=== PATIENT | male | born 1960 | race Caucasian/White ===

== ENCOUNTER 2018-04-20 16:17 | Outpatient (REF) | payer OTHER, SELFPAY ==
[2018-04-20 22:34] LABS: Abs Immature Grans 0.01 k/cumm (0.0-0.09); Absolute Basophil Count 0.05 k/cumm (0.0-0.2); Absolute Eosinophil Count 0.09 k/cumm (0.0-0.7); Absolute Lymphocyte Count 1.39 k/cumm (1.2-3.4); Absolute Monocyte Count 0.31 k/cumm (0.11-0.7); Absolute Neutrophil Count 3.49 k/cumm (1.2-6.7); Basophils % 0.9; Eosinophils % 1.7; HCT 46.6 % (40.0-50.0); HGB 15.6 g/dL (13.5-17.5); Immature Grans % 0.2; Mean Corp. HGB Concentration 33.5 g/dL (32.0-36.0); Mean Corpuscular Volume 101.5 fL (80-95); Mean Platelet Volume 9.5 fL (8.0-11.0); Monocytes % 5.8; Neutrophils % 65.4; Platelet Count 234 x1000/uL (130-400); RBC 4.59 m/cumm (4.50-6.00); RBC Distribution Width 11.9 % (11.8-14.1); White Blood Cell Count 5.34 k/cumm (4.4-10.8)
[2018-04-20 22:55] LABS: ALT 81 U/L (12-78); AST 55 U/L (15-37); Albumin 3.9 g/dL (3.4-5.0); Alkaline Phosphatase 87 U/L (46-116); Bilirubin, Total 0.4 mg/dL (0.2-1.0)
[2018-04-20 23:26] LABS: Bilirubin, Direct 0.14 mg/dL (0.00-0.20)
== END 2018-04-20 16:37 ==
LOC: NCHCN 16:17
PROVIDERS: PCP Internal Medicine; Visit Provider Internal Medicine
DX: F10.10 Alcohol abuse, uncomplicated (principal); R94.5 Abnormal results of liver function studies; J13 Pneumonia due to Streptococcus pneumoniae
CPT/HCPCS: 80076; 85025

== ENCOUNTER 2018-05-24 10:37 | Outpatient (REF) | payer OTHER, SELFPAY ==
[2018-05-24 20:37] LABS: Abs Immature Grans 0.01 k/cumm (0.0-0.09); Absolute Basophil Count 0.02 k/cumm (0.0-0.2); Absolute Lymphocyte Count 0.89 k/cumm (1.2-3.4); Absolute Monocyte Count 0.43 k/cumm (0.11-0.7); Absolute Neutrophil Count 1.79 k/cumm (1.2-6.7); Basophils % 0.6; Eosinophils % 3.1; HCT 44.1 % (40.0-50.0); HGB 15.5 g/dL (13.5-17.5); Immature Grans % 0.3; Lymphocytes % 27.5; Mean Corp. HGB Concentration 35.1 g/dL (32.0-36.0); Mean Corpuscular Hemoglobin 33.2 pg (27.0-33.0); Mean Corpuscular Volume 94.4 fL (80-95); Mean Platelet Volume 9.6 fL (8.0-11.0); Monocytes % 13.3; Neutrophils % 55.2; Platelet Count 159 x1000/uL (130-400); RBC 4.67 m/cumm (4.50-6.00); RBC Distribution Width 11.7 % (11.8-14.1); White Blood Cell Count 3.24 k/cumm (4.4-10.8)
[2018-05-24 20:43] LABS: ALT 62 U/L (12-78); AST 29 U/L (15-37); Albumin 3.6 g/dL (3.4-5.0); Alkaline Phosphatase 77 U/L (46-116); Bilirubin, Direct 0.16 mg/dL (0.00-0.20); Bilirubin, Total 0.8 mg/dL (0.2-1.0); Total Protein 6.3 g/dL (6.4-8.2)
== END 2018-05-24 10:57 ==
LOC: NCHCN 10:37
PROVIDERS: PCP Internal Medicine; Visit Provider Internal Medicine
DX: R94.5 Abnormal results of liver function studies (principal); R68.89 Other general symptoms and signs
CPT/HCPCS: 80076; 85025

== ENCOUNTER 2019-06-08 21:59 | Outpatient (REF) | payer OTHER, SELFPAY ==
[2019-06-08 22:12] LABS: HCT 50.6 % (40.0-50.0); HGB 17.2 g/dL (13.5-17.5); Mean Corpuscular Hemoglobin 33.6 pg (27.0-33.0); Mean Corpuscular Volume 98.8 fL (80-95); Mean Platelet Volume 9.8 fL (8.0-11.0); Platelet Count 169 x1000/uL (130-400); RBC 5.12 m/cumm (4.50-6.00); RBC Distribution Width 12.7 % (11.8-14.1); White Blood Cell Count 5.21 k/cumm (4.4-10.8)
[2019-06-08 23:02] LABS: ALT 78 U/L (16-63); AST 80 U/L (15-37); Albumin 3.8 g/dL (3.4-5.0); Alkaline Phosphatase 92 U/L (46-116); BUN 8 mg/dL (7-18); Bilirubin, Total 0.8 mg/dL (0.2-1.0); CREATININE 0.91 mg/dL (0.70-1.30); Calcium 9.2 mg/dL (8.5-10.1); Chloride 106 mmol/L (98-107); Glucose 129 mg/dL (70-100); Potassium 4.1 mmol/L (3.5-5.1); Sodium 144 mmol/L (136-145); TSH (W/Ref FT4) 2.48 uIU/mL (0.36-3.74); Total Protein 6.9 g/dL (6.4-8.2)
[2019-06-13 08:18] LABS: Hepatitis C Ab w Rflx HCV PCR Negative (Negative)
== END 2019-06-08 22:19 ==
LOC: NCHCN 21:59
PROVIDERS: PCP Nurse Practitioner Community Health; Visit Provider Nurse Practitioner Community Health
DX: R00.2 Palpitations (principal); R68.89 Other general symptoms and signs; Z11.59 Encounter for screening for other viral diseases
CPT/HCPCS: 80053; 85027; 86803; 84443

== ENCOUNTER 2019-11-21 00:25 | Outpatient (CLI) | payer SELFPAY ==
--- NOTE | 2019-11-21 | DI.RAD_ITS ---
EXAM: XR CHEST 2V PA LATERAL CLINICAL HISTORY: CHEST PRESSURE, R07.89 TECHNIQUE: 2D digital imaging was performed. COMPARISON: No exams were available for comparison FINDINGS: The heart size is normal. A moderate size hiatal hernia is noted. The lungs appear clear. No infil trate, effusion or pneumothorax is seen. No thoracic compression fractures are seen. IMPRESSION: Hiatal hernia. No acute abnormality.
--- NOTE | 2019-11-21 08:00 | ETT_ITS ---
APPROVED REPORT Exam: Exercise Treadmill Patient Location: Out-Patient Room/Bed: Stress Nurse: Miriam Ocmapo RN BMI: 28.45 Baseline Rhythm: Sinus Rhythm with incomplete RBBB and borderline prolonged QT interval Indications: Chest pressure. SOB. Diaphoresis. Medical History Medical History: Hyperlipidemia Allergies: No known drug allergies Cardiac Risk Factors: Hyperlipidemia. Former smoker. Pretest Chest Pain Characteristics: Exertional Chest pain Exercise History: Physically active Lung Sounds: Clear to auscultation Heart Sounds: Regular Stress Test Details Test: Exercise stress testing was performed using a Rajendra protocol. Rest Stress HR Resting HR Supine: 86 bpm Max Heart Rate (APMHR): 163 bpm Resting HR Standin bpm Target HR (85% APMHR): 138 bpm Max HR Achieved: 169 bpm % of APMHR: 103 Recovery HR: 112 bpm HR response to stress: Normal HR response to stress Comment: HR slow to return to baseline post exercise. BP Resting BP Supine: 140/66 mmHg Resting BP Standin/68 mmHg Max BP: 160/80 mmHg Recovery BP: 148/72 mmHg BP response to stress: Normal blood pressure response to stress. ECG Stress ECG: Sinus Tachycardia ST Change: Normal Arrhythmia: None Recovery ECG: Sinus Rhythm Recovery ST Change: Normal Clinical Reason for Termination: Fatigue Stress Symptoms: General Fatigue Exercise duration: 11 min01 sec Highest Stage Reached: Stage 4: 4.2 mph at 16% grade. Exercise capacity: 13.48 METs Functional Capacity: Above average capacity Stress ECG Conclusion 1. Exercised for 11 minutes (13 METS). Pressure product was 25,000. Exercise was stopped due to fat igue. 2. The patient had no symptoms suggestive of ischemia. 3. There was no evidence of ischemia on the ECG portion of the exam. 4. The Singh Score (11) estimates an annual cardiovascular mortality of 0% and a five year survival of 96%. Using the Singh Score there is a low probability of any angiographic coronary disease.
== END 2019-11-21 00:45 ==
PROVIDERS: PCP Family Medicine; Visit Provider Family Medicine
DX: R07.89 Other chest pain (principal); R06.02 Shortness of breath; R61 Generalized hyperhidrosis; E78.5 Hyperlipidemia, unspecified; Z87.891 Personal history of nicotine dependence; K44.9 Diaphragmatic hernia without obstruction or gangrene
CPT/HCPCS: 71046; 93017

== ENCOUNTER 2020-01-31 16:30 | Outpatient (REF) | payer SELFPAY ==
[2020-01-31 20:41] LABS: Hemoglobin A1C 5.8 % (3.8-5.6)
[2020-01-31 20:42] LABS: ALT 45 U/L (16-63); AST 22 U/L (15-37); Albumin 4.3 g/dL (3.4-5.0); Alkaline Phosphatase 71 U/L (46-116); Bilirubin, Total 0.9 mg/dL (0.2-1.0); Ferritin 213 ng/mL (26-388); Total Protein 6.8 g/dL (6.4-8.2); Vitamin B12 540 pg/mL (193-986)
[2020-01-31 20:52] LABS: Bilirubin, Direct 0.28 mg/dL (0.00-0.20)
[2020-02-02 10:57] LABS: Hepatitis B Surface Ag Negative (Negative)
== END 2020-01-31 16:50 ==
LOC: NCHCN 16:30
PROVIDERS: PCP Family Medicine; Visit Provider Family Medicine
DX: D75.89 Other specified diseases of blood and blood-forming organs (principal); K70.10 Alcoholic hepatitis without ascites; Z13.1 Encounter for screening for diabetes mellitus
CPT/HCPCS: 80076; 87340; 82607; 82728; 83036

== ENCOUNTER 2021-01-30 14:55 | Outpatient (REF) | payer SELFPAY ==
[2021-01-30 15:20] LABS: Hemoglobin A1C 5.9 % (<5.7)
[2021-01-30 15:49] LABS: Anion Gap 10.3 mmol/L (3-11); BUN 13 mg/dL (7-18); CO2 25.7 mmol/L (21.0-32.0); Calcium 9.2 mg/dL (8.5-10.1); Chloride 106 mmol/L (98-107); Glucose 123 mg/dL (74-106); Potassium 4.1 mmol/L (3.5-5.1); Sodium 142 mmol/L (136-145); TSH (W/Ref FT4) 2.82 uIU/mL (0.36-3.74)
== END 2021-01-30 14:56 | disposition home or self-care (01) ==
LOC: LBN 14:55
PROVIDERS: PCP Family Medicine; Visit Provider Family Medicine
DX: R03.0 Elevated blood-pressure reading, without diagnosis of hypertension (principal); R73.03 Prediabetes
CPT/HCPCS: 80048; 83036; 84443

== ENCOUNTER 2022-09-01 15:08 | Outpatient (REF) | payer SELFPAY ==
[2022-09-01 15:13] LABS: Abs Immature Grans 0.02 10^3/uL (0.0-0.06); Absolute Basophil Count 0.02 10^3/uL (0.0-0.2); Absolute Eosinophil Count 0.09 10^3/uL (0.0-0.7); Absolute Lymphocyte Count 1.32 10^3/uL (1.2-3.4); Absolute Monocyte Count 0.59 10^3/uL (0.1-0.8); Absolute Neutrophil Count 3.27 10^3/uL (1.2-6.7); Basophils % 0.4; Eosinophils % 1.7; HCT 46.1 % (40.0-50.0); HGB 15.4 g/dL (13.5-17.5); Immature Grans % 0.4; Lymphocytes % 24.9; MCH 30.9 pg (27.0-33.0); MCHC 33.4 % (32.0-36.0); MCV 92 fL (80-95); Monocytes % 11.1; Neutrophils % 61.5; Platelet Count 201 10^3/uL (130-400); RBC 4.99 10^6/uL (4.36-5.78); RDW 11.9 % (11.8-14.1); RDW-SD 40.7 fL; WBC 5.31 10^3/uL (4.4-10.8)
[2022-09-01 15:37] LABS: ALT 16 U/L (16-63); AST 19 U/L (15-37); Albumin 4.2 g/dL (3.4-5.0); Alkaline Phosphatase 71 U/L (46-116); Anion Gap 10.3 mmol/L (3-11); BUN 21 mg/dL (7-18); Bilirubin, Total 0.6 mg/dL (0.2-1.0); CO2 26.7 mmol/L (21.0-32.0); Calcium 9.3 mg/dL (8.5-10.1); Calculated LDL 139 mg/dL (<100); Chloride 104 mmol/L (98-107); Cholesterol 208 mg/dL (<200); Estimated GFR 86.16 (mL/min/1.73m2); Glucose 119 mg/dL (74-106); HDL Cholesterol 42 mg/dL (40-60); Potassium 4.3 mmol/L (3.5-5.1); Sodium 141 mmol/L (136-145); TSH (W/Ref FT4) 3.17 uIU/mL (0.36-3.74); Triglyceride 135 mg/dL (<150)
[2022-09-01 15:54] LABS: Hemoglobin A1C 5.8 % (<5.7)
[2022-09-01 16:06] LABS: Bilirubin Negative (Negative); Blood Moderate (Negative); Clarity Cloudy (Clear); Glucose Negative (Negative); Ketones Negative (Negative); Leukocyte Esterase Trace (Negative); Nitrite Negative (Negative); Specific Gravity >= 1.030 (1.005-1.025); Urobilinogen 0.2 EU/dL (Up TO 0.2); pH 5.5 (5-8)
[2022-09-01 16:19] LABS: Total Protein 7.1 g/dL (6.4-8.2)
[2022-09-01 16:22] LABS: Bacteria Few HPF (Negative); C & S Indicated? Yes; Casts Negative LPF (Negative); Crystals Few Amorphous HPF (Negative); Epithelial Cells Rare HPF (Negative); Mucus Negative (Negative)
[2022-09-01 16:35] LABS: COMMENT (LAB VIEW ONLY) 344.93 mg/dL; Microalb ug/mg Crea 3.4 ug/mg Cr
== END 2022-09-01 15:09 | disposition home or self-care (01) ==
LOC: NCHCN 15:08
PROVIDERS: PCP Family Medicine; Visit Provider Nurse Practitioner Family
DX: E78.5 Hyperlipidemia, unspecified (principal); R73.03 Prediabetes; R19.7 Diarrhea, unspecified; K22.70 Barrett's esophagus without dysplasia; F10.10 Alcohol abuse, uncomplicated; R31.9 Hematuria, unspecified
CPT/HCPCS: 80053; 80061; 81003; 81015; 82043; 82570; 83036; 84443; 85025; 87086

== ENCOUNTER 2022-09-14 18:05 | Outpatient (REF) | payer SELFPAY ==
[2022-09-14 19:10] LABS: Vitamin D 25 Total 34.9 ng/mL (30-100)
[2022-09-14 19:14] LABS: Vitamin B12 378 pg/mL (193-986)
== END 2022-09-14 18:06 | disposition home or self-care (01) ==
LOC: NCHCN 18:05
PROVIDERS: PCP Family Medicine; Visit Provider Nurse Practitioner Family
DX: Z00.00 Encounter for general adult medical examination without abnormal findings (principal); Z13.21 Encounter for screening for nutritional disorder
CPT/HCPCS: 82306; 82607